=== PATIENT | male | born 1970 | race African-American/Black ===

== ENCOUNTER → 2016-08-30 | Outpatient (CLI) | payer OTHER ==
--- NOTE | 2016-09-01 16:46 | US ---
EXAM DATE: 08/30/16 PATIENT'S AGE: 46 Patient: ROSMERY VANESSA Facility: [place], [place] Site . Site : 1970 Study: US Extremity [id number]/28/2017 12:19:59 PM Ordering Physician: Tony Felix Final Report: INDICATION: swelling and pain in rt leg RIGHT LOWER EXTREMITY VENOUS DUPLEX ULTRASOUND TECHNIQUE: Duplex sonography using grayscale imaging as well as color and spectral Doppler interrogation was performed over the right lower extremity with attention to the deep venous system. FINDINGS: The right common femoral, femoral, deep femoral, popliteal, and posterior tibial veins show normal compressibility, color Doppler flow, and augmentation response. IMPRESSION: No evidence of deep venous thrombosis in the right lower extremity. PANCHO AMEZQUITA MD [employer] Dictated by: Kyrie Amezquita MD @ 08/30/2016 12:22:18 (Electronic Signature) Report Signed by Proxy. YAKOV
== END ==
LOC: MW.US 11:30
PROVIDERS: ATTEND Student in an Organized Health Care Education/Training Program
DX: M79.604 Pain in right leg (principal); R22.41 Localized swelling, mass and lump, right lower limb
CPT/HCPCS: 93971-26-RT; 93971-RT

== ENCOUNTER 2018-05-15 19:19 | Emergency (ER) | payer MEDICAID, MEDICARE ==
--- NOTE | 2018-05-15 19:36 | EDM.PDOC ---
ED HPI GENERAL MEDICAL PROBLEM - General Chief Complaint: Trauma Stated Complaint: FALL Time Seen by Provider: 05/15/18 19:26 - History of Present Illness INITIAL COMMENTS - FREE TEXT/NARRATIVE: HISTORY AND PHYSICAL: History of present illness: The patient is a 47-year-old male with a history of hypertension type 2 diabetes and chronic right leg weakness due to a back surgery and chronic back pain who normally uses a cane to get around due to this weakness and presents to the ED after he was getting out of the passenger side of the car and there was ice and he immediately put weight on it with his bad leg and slipped and fell onto his right side. This event occurred about 3 hours ago. He did not pass out or blacked out but he did strike his head and has no neck or upper back pain but complains of lower back pain and right hip pain as well as a slight headache. The patient takes aspirin daily and due to the mechanism and his aspirin use he was called as a trauma alert. Patient says that earlier today he was in his usual state of good health with no systemic complaints such as fevers chills chest pain shortness of breath or new neurologic changes. He had a normal day of eating and drinking. He follows at [facility] with a provider therefore his health care and medications. is at bedside and she was present for this incident. Patient denies lower leg pain or upper extremity complaints and has no chest or abdominal complaints. He says that the right side of his neck is sore and tight but he has no midline neck pain. He's had no nausea and vomiting since the event. The patient tells me that he has pain at the right hip with movement but he doesn't feel like his right lower extremity is weaker with movement or ambulation Review of systems: As per history of present illness and below otherwise all systems reviewed and negative. Past medical history: As per history of present illness and as reviewed below otherwise noncontributory. Surgical history: As per history of present illness and as reviewed below otherwise noncontributory. Social history: No reported history of drug or alcohol abuse. Family history: As per history of present illness and as reviewed below otherwise noncontributory. Physical exam: General: Well-developed well-nourished obese man who is nontoxic and ambulated into the ED with his cane. Vital signs are noted by me HEENT: Atraumatic and I cannot appreciate any scalp defects or deformities or soft tissue swelling, normocephalic, pupils reactive, negative for conjunctival pallor or scleral icterus, mucous membranes moist, throat clear, neck supple, nontender, trachea midline. There is no evidence of any soft tissue injuries defects or deformities of the facial bones and there are no midline step-offs tenderness defects of the cervical spine. There is slight tenderness in the right trapezius and right paracervical spinal area. TMs are dulled bilaterally Lungs: Clear to auscultation, breath sounds equal bilaterally, chest nontender. Heart: S1S2, regular rate and rhythm no overt murmurs Abdomen: Soft, nondistended, nontender. Negative for masses or hepatosplenomegaly. Negative for costovertebral tenderness. Pelvis: Stable and there is some mild tenderness to palpation of the right posterior pelvis near the SI joint but no bruising ecchymosis or soft tissue swelling is appreciated. Genitourinary: Deferred. Rectal: Deferred. Extremities: Atraumatic, negative for cords or calf pain. Neurovascular unremarkable. The patient has no bony defects deformities or decreased range of motion in any of the extremities other than the right lower leg where he has discomfort with flexion at the right hip. Neuro: Awake, alert, oriented. Cranial nerves II through XII unremarkable. Cerebellum unremarkable. Motor is at the patient's baseline on his right lower leg and all other motor is intact 5/5 and sensory unremarkable throughout. Exam nonfocal. Back: There are no midline step-offs tenderness or defects of the thoracic or lumbar spine but there is right paraspinal tenderness with palpation along the posterior pelvis area and lumbar paraspinals but there is no soft tissue injury appreciated. Diagnostics: CT scan of the head and lumbar spine, right hip with pelvis x-ray Therapeutics: Toradol Norflex As this case was called as a trauma alert we will involve the trauma surgeon as needed and indicated pending the testing results. 2037: CT scan results were discussed with Dr. Yang the neurosurgeon on-call at [facility] and he says that this is just follow-up, pain management and possible physical therapy and no further emergent intervention. Testing results with the patient and family at bedside and will give him a prescription for Norflex and diclofenac and have advised him to use that as well as his home meds of oxycodone. Impression: Fall with right hip right lumbar back and head contusion Definitive disposition and diagnosis as appropriate pending reevaluation and review of above. Right Head Pain Score (Numeric/FACES): 8 - Related Data Allergies Allergy/AdvReac Type Severity Reaction Status Date / Time No Known Allergies Allergy Verified 05/15/18 20:32 Home Meds: Home Meds metFORMIN [Glucophage] 1,000 mg PO BID 09/27/13 [History] Aspirin [[place] Aspirin EC] 81 mg PO DAILY 03/24/14 [History] amLODIPine [Norvasc] 10 mg PO BID #60 tablet 09/02/14 [Rx] Carvedilol 25 mg PO BID 06/29/15 [History] Omeprazole [Prilosec] 40 mg PO ASDIRECTED 06/29/15 [History] oxyCODONE 15 mg PO Q8H 05/15/18 [History] Past Medical History Cardiovascular History: Reports: CAD, Hypertension Neurological History: Reports: Headaches, Chronic Endocrine/Metabolic History: Reports: Diabetes, Type II Dermatologic History: Reports: Psoriasis - Infectious Disease History Infectious Disease History: Reports: Chicken Pox - Past Surgical History Cardiovascular Surgical History: Reports: Other (See Below) GI Surgical History: Reports: Hernia, Abdominal Male Surgical History: Reports: Other (See Below) Other Male Surgeries/Procedures: adrenalectomy? Neurological Surgical History: Reports: Laminectomy, Other (See Below) Review of Systems - Review of Systems Review Of Systems: ROS reveals no pertinent complaints other than HPI. ED EXAM, GENERAL - Physical Exam Exam: See Below (See dictation) Course - Vital Signs Last Recorded V/S: Last Vital Signs Temp 36.6 C 05/15/18 19:19 Pulse 102 H 05/15/18 19:19 Resp 24 H 05/15/18 19:19 BP 149/84 H 05/15/18 19:19 Pulse Ox 97 05/15/18 19:19 - Orders/Labs/Meds Orders: Active Orders 24 hr Category Date Time Status Patient Status [ADT] Stat ADT 05/15/18 20:21 Active Head wo Cont [CT] Stat Exams 05/15/18 19:27 Taken Hip Min 2V or 3V w Pelvis Rt [CR] Stat Exams 05/15/18 19:27 Taken Lumbar Spine wo Cont [CT] Stat Exams 05/15/18 19:27 Taken Ketorolac [Toradol] Med 05/15/18 20:41 Once 60 mg IM ONETIME ONE Orphenadrine [Norflex] Med 05/15/18 20:41 Once 60 mg IM ONETIME ONE Medication Orders Ketorolac Tromethamine (Toradol) 60 mg IM ONETIME ONE Stop: 05/15/18 20:42 Orphenadrine Citrate (Norflex) 60 mg IM ONETIME ONE Stop: 05/15/18 20:42 Meds: Medications Generic Name Dose Route Start Last Admin Trade Name Chuy PRN Reason Stop Dose Admin Ketorolac Tromethamine 60 mg 05/15/18 20:41 Toradol IM 05/15/18 20:42 ONETIME ONE Orphenadrine Citrate 60 mg 05/15/18 20:41 Norflex IM 05/15/18 20:42 ONETIME ONE Departure - Departure Time of Disposition: 20:43 Disposition: Home, Self-Care 01 Condition: Good Clinical Impression: Traumatic fracture of lumbar vertebra Fall Qualifiers: Encounter type: initial encounter Qualified Code(s): W19.XXXA - Unspecified fall, initial encounter Closed head injury Qualifiers: Encounter type: initial encounter Qualified Code(s): S09.90XA - Unspecified injury of head, initial encounter Back contusion Qualifiers: Encounter type: initial encounter Laterality: right Qualified Code(s): S20.221A - Contusion of right back wall of thorax, initial encounter Contusion of right hip Qualifiers: Encounter type: initial encounter Qualified Code(s): S70.01XA - Contusion of right hip, initial encounter - Discharge Information Referrals: Isidro Jimenez MD [Primary Care Provider] - Forms: ED Department Discharge Additional Instructions: The following information is given to patients seen in the emergency department who are being discharged to home. This information is to outline your options for follow-up care. We provide all patients seen in our emergency department with a follow-up referral. The need for follow-up, as well as the timing and circumstances, are variable depending upon the specifics of your emergency department visit. If you don't have a primary care physician on staff, we will provide you with a referral. We always advise you to contact your personal physician following an emergency department visit to inform them of the circumstance of the visit and for follow-up with them and/or the need for any referrals to a consulting specialist. The emergency department will also refer you to a specialist when appropriate. This referral assures that you have the opportunity for followup care with a specialist. All of these measure are taken in an effort to provide you with optimal care, which includes your followup. Under all circumstances we always encourage you to contact your private physician who remains a resource for coordinating your care. When calling for followup care, please make the office aware that this follow-up is from your recent emergency room visit. If for any reason you are refused follow-up, please contact the [facility] emergency department at and ask to speak to the emergency department charge nurse. [facility] Primary care- Internal Medicine and Family [address] [address] [place] [address] Expect aches and pains over the next few days to one week and use her home medication or medications as prescribed to you today. Please only take the muscle relaxer when you're at home. Please call and schedule a follow-up appointment with your provider in the clinic at [facility] or one of hours for reevaluation and further care. Use ice to all areas of soreness for the next 24 hours and then alternate ice and heat afterwards. Return to ER as needed and as discussed - My Orders Last 24 Hours: My Active Orders 05/15/18 19:27 Head wo Cont [CT] Stat Hip Min 2V or 3V w Pelvis Rt [CR] Stat Lumbar Spine wo Cont [CT] Stat 05/15/18 20:21 Patient Status [ADT] Stat 05/15/18 20:41 Ketorolac [Toradol] 60 mg IM ONETIME ONE Orphenadrine [Norflex] 60 mg IM ONETIME ONE - Assessment/Plan Last 24 Hours: My Active Orders 05/15/18 19:27 Head wo Cont [CT] Stat Hip Min 2V or 3V w Pelvis Rt [CR] Stat Lumbar Spine wo Cont [CT] Stat 05/15/18 20:21 Patient Status [ADT] Stat 05/15/18 20:41 Ketorolac [Toradol] 60 mg IM ONETIME ONE Orphenadrine [Norflex] 60 mg IM ONETIME ONE
[2018-05-15] MEDS ORDERED: Ketorolac 60 MG/2 ML SDV IM ONE (20:41)
[2018-05-15 21:16] VITALS: BP 134/89
--- NOTE | 2018-05-18 14:41 | CT ---
EXAM DATE: 05/15/18 PATIENT'S AGE: 47 Patient: ROSMERY VANESSA Facility: [place], [place] Site . Site : 1970 Study: CT Head [id number]/11/2019 8:08:46 PM Ordering Physician: Elisa Chaudhary Final Report: INDICATION: Fall TECHNIQUE: CT head without contrast. COMPARISON: None FINDINGS: CSF spaces: Within normal limits for age. Brain parenchyma: The londono-white differentiation is normal. No sign of mass, hemorrhage, or midline shift. Skull base and calvarium: There is opacification of the right maxillary sinus and retention cysts in the left maxillary sinus. The mastoid air cells demonstrate no acute or significant findings. The visualized orbits are grossly unremarkable. No skull fractures. IMPRESSION: No acute intracranial abnormality. Maxillary sinus disease. Please note that all CT scans at this facility use dose modulation, iterative reconstruction, and/or weight-based dosing when appropriate to reduce radiation dose to as low as reasonably achievable. Dictated by Yvonne Ball MD @ May 15 2018 8:19PM (Electronic Signature) Report Signed by Proxy. [facility]
--- NOTE | 2018-05-18 14:42 | CT ---
EXAM DATE: 05/15/18 PATIENT'S AGE: 47 Patient: ROSMERY VANESSA Facility: [place], [place] Site . Site : 1970 Study: CT Spine Lumbar [id number]/11/2019 8:09:46 PM Ordering Physician: Elisa Chaudhary Final Report: INDICATION: Fall, recent lumbar surgery TECHNIQUE: CT lumbar spine without contrast. COMPARISON: MR December 16, 2016 FINDINGS: Vertebral alignment: Alignment is normal. Vertebrae: There is a minimally displaced fracture through the right L4 inferior facet. There is a right L5 hemilaminectomy. Discs and facet joints: Mild degenerative disc changes, most notable at the L4- L5 level. Mild multilevel degenerative facet changes. Extraspinal findings: Prevertebral soft tissues and visualized retroperitoneum are unremarkable. IMPRESSION: Minimally displaced fracture through the right L4 inferior facet. This appears acute to subacute in age. Postoperative changes of a right L5 hemilaminectomy. Please note that all CT scans at this facility use dose modulation, iterative reconstruction, and/or weight-based dosing when appropriate to reduce radiation dose to as low as reasonably achievable. Dictated by Yvonne Ball MD @ May 15 2018 8:24PM (Electronic Signature) Report Signed by Proxy. [facility]US[facility]akay[facility]
--- NOTE | 2018-05-18 14:42 | CR ---
EXAM DATE: 05/15/18 PATIENT'S AGE: 47 Patient: ROSMERY VANESSA Facility: [place], [place] Site . Site : 1970 Study: XRay Hip Right w/pelvis [id number]/11/2019 8:16:50 PM Ordering Physician: Elisa Chaudhary Final Report: Indication: Fall Technique: Frontal view pelvis, frontal and frog-leg lateral views right hip Comparison: None Findings: Bones: Alignment is normal. No fractures or bone lesions. Joint spaces: Mild degenerative changes in both hip joints. Soft tissues: Unremarkable. Impression: No acute abnormality. Dictated by Yvonne Ball MD @ May 15 2018 8:22PM (Electronic Signature) Report Signed by Proxy. YAKOV
== END 2018-05-15 21:12 | disposition home or self-care (01) ==
LOC: MW.ED 19:19
DX: S32.009A Unspecified fracture of unspecified lumbar vertebra, initial encounter for closed fracture (principal); S00.93XA Contusion of unspecified part of head, initial encounter; S70.01XA Contusion of right hip, initial encounter; I10 Essential (primary) hypertension; E11.9 Type 2 diabetes mellitus without complications; Z79.84 Long term (current) use of oral hypoglycemic drugs; Z79.82 Long term (current) use of aspirin; W01.0XXA Fall on same level from slipping, tripping and stumbling without subsequent striking against object, initial encounter
CPT/HCPCS: 70450; 72131; 73502; 96372; 99284; J1885; J2360

== ENCOUNTER 2023-03-12 18:44 | Emergency (ER) | payer SELFPAY ==
[2023-03-12] MEDS ORDERED: Morphine 4 MG/ML Syringe IVPUSH STA (19:11)
[2023-03-12] MEDS ORDERED: Sodium Chloride 0.9% 1,000 ML IV ONE (19:11)
[2023-03-12] MEDS ORDERED: Ondansetron 4 MG/2 ML SDV IVPUSH ONE (19:11)
[2023-03-12 19:15] LABS: BASOPHILS ABSOLUTE AUTO 0.06 K/uL (0.00-0.20); BASOPHILS PERCENT AUTO 0.8 % (0.0-1.0); EOSINOPHILS ABSOLUTE AUTO 0.13 K/uL (0.00-0.45); EOSINOPHILS PERCENT AUTO 1.7 % (0.0-6.0); HEMATOCRIT 41.5 % (42.0-52.0); HEMOGLOBIN 12.4 g/dL (14.0-18.0); IMMATURE GRAN ABSOLUTE AUTO 0.04 K/uL (0.00-0.05); IMMATURE GRAN PERCENT AUTO 0.5 % (0.0-0.4); LYMPHOCYTES ABSOLUTE AUTO 1.79 K/uL (1.00-4.80); LYMPHOCYTES PERCENT AUTO 23.2 % (24.0-44.0); MEAN CORPUSCULAR HEMOGLOBIN 21.3 pg (28.0-32.0); MEAN CORPUSCULAR HGB CONC 29.9 g/dL (32.0-36.0); MEAN CORPUSCULAR VOLUME 71.3 fL (83.0-99.0); MONOCYTES ABSOLUTE AUTO 1.39 K/uL (0.00-0.80); NEUTROPHILS PERCENT AUTO 55.8 % (41.0-71.0); PLATELET COUNT,PLT 264 K/uL (150-400); RED BLOOD CELL COUNT 5.82 M/uL (4.52-5.90); WHITE BLOOD CELL COUNT,WBC 7.71 K/uL (3.9-11.3)
[2023-03-12 19:48] LABS: A/G RATIO 0.9 (0.9-1.6); ALBUMIN 3.7 g/dL (3.4-5.0); BILIRUBIN TOTAL 0.3 mg/dL (0.2-1.0); CALCIUM 9.3 mg/dL (8.5-10.1); CARBON DIOXIDE,CO2 28.5 mmol/L (21.0-32.0); EST CRCL DRUG DOSING (CG) 49.94 mL/min; POTASSIUM,K 4.2 mmol/L (3.5-5.1)
[2023-03-12 20:12] LABS: CORONAVIRUS COVID-19 NAA POSITIVE (NEGATIVE); INFLUENZA A NAA NEGATIVE (NEGATIVE); INFLUENZA B NAA NEGATIVE (NEGATIVE); RESPIRATORY SYNCYTIAL VIR NAA NEGATIVE (NEGATIVE)
[2023-03-12 20:19] VITALS: BP 138/87
[2023-03-12 22:37] VITALS: PULSE 80
== END 2023-03-12 22:03 | disposition home or self-care (01) ==
LOC: MW.ED 18:44
DX: U07.1 COVID-19 (principal); R07.89 Other chest pain; I10 Essential (primary) hypertension; K21.9 Gastro-esophageal reflux disease without esophagitis; E11.9 Type 2 diabetes mellitus without complications; E66.9 Obesity, unspecified; Z68.42 Body mass index [BMI] 45.0-49.9, adult; Z79.4 Long term (current) use of insulin; Z79.899 Other long term (current) drug therapy
CPT/HCPCS: 0241U; 36415; 71045; 80053; 82947; 84484; 85025; 85379; 96361; 96374; 96375; 99285; J2270; J2405; J7030; 93010; 99284

== ENCOUNTER 2023-07-25 21:48 | Emergency (ER) | payer MEDICARE ==
[2023-07-25 22:35] LABS: BASOPHILS ABSOLUTE AUTO 0.08 K/uL (0.00-0.20); BASOPHILS PERCENT AUTO 0.7 % (0.0-1.0); EOSINOPHILS ABSOLUTE AUTO 0.08 K/uL (0.00-0.45); EOSINOPHILS PERCENT AUTO 0.7 % (0.0-6.0); HEMATOCRIT 41.3 % (42.0-52.0); HEMOGLOBIN 12.7 g/dL (14.0-18.0); IMMATURE GRAN ABSOLUTE AUTO 0.05 K/uL (0.00-0.05); IMMATURE GRAN PERCENT AUTO 0.5 % (0.0-0.4); LYMPHOCYTES ABSOLUTE AUTO 2.31 K/uL (1.00-4.80); LYMPHOCYTES PERCENT AUTO 21.2 % (24.0-44.0); MEAN CORPUSCULAR HEMOGLOBIN 21.1 pg (28.0-32.0); MEAN CORPUSCULAR HGB CONC 30.8 g/dL (32.0-36.0); MEAN PLATELET VOLUME 8.9 fL (9.4-12.4); MONOCYTES ABSOLUTE AUTO 0.87 K/uL (0.00-0.80); NEUTROPHILS ABSOLUTE AUTO 7.53 K/uL (1.80-7.70); NEUTROPHILS PERCENT AUTO 68.9 % (41.0-71.0); PLATELET COUNT,PLT 313 K/uL (150-400); RED BLOOD CELL COUNT 6.01 M/uL (4.52-5.90); WHITE BLOOD CELL COUNT,WBC 10.92 K/uL (3.9-11.3)
[2023-07-25 22:59] LABS: A/G RATIO 0.8 (0.9-1.6); ALBUMIN 3.8 g/dL (3.4-5.0); BILIRUBIN TOTAL 0.4 mg/dL (0.2-1.0); CALCIUM 9.6 mg/dL (8.5-10.1); CARBON DIOXIDE,CO2 24.9 mmol/L (21.0-32.0); CREATININE 2.3 mg/dL (0.8-1.3); EST CRCL DRUG DOSING (CG) 44.05 mL/min; POTASSIUM,K 4.7 mmol/L (3.5-5.1); PROTEIN TOTAL,TP 8.7 g/dL (6.4-8.2)
[2023-07-25 23:05] LABS: MEAN CORPUSCULAR VOLUME 68.7 fL (83.0-99.0)
[2023-07-25 23:12] LABS: CORONAVIRUS COVID-19 NAA NEGATIVE (NEGATIVE); INFLUENZA A NAA NEGATIVE (NEGATIVE); INFLUENZA B NAA NEGATIVE (NEGATIVE); RESPIRATORY SYNCYTIAL VIR NAA NEGATIVE (NEGATIVE)
[2023-07-25] MEDS: Sodium Chloride 0.9% 1,000 ML IV STA (23:56)
[2023-07-25] MEDS: Sodium Chloride 0.9% 10 ML Syringe FLUSH PRN (23:58)
[2023-07-25] MEDS: Sodium Chloride 0.9% 2.5 ML Syringe FLUSH PRN (23:59)
[2023-07-26 01:21] VITALS: BP 128/73; PULSE 96
== END 2023-07-26 01:18 | disposition home or self-care (01) ==
LOC: MW.ED 21:48
DX: R53.83 Other fatigue (principal); E11.65 Type 2 diabetes mellitus with hyperglycemia; N17.9 Acute kidney failure, unspecified; E66.9 Obesity, unspecified; I10 Essential (primary) hypertension; K21.9 Gastro-esophageal reflux disease without esophagitis; E78.00 Pure hypercholesterolemia, unspecified; Z79.4 Long term (current) use of insulin; Z79.899 Other long term (current) drug therapy
CPT/HCPCS: 0241U; 36415; 71046; 80053; 82947; 84484; 85025; 93005; 96360; 99285; J3490; J7030; 93010; 99282

== ENCOUNTER 2023-11-30 16:03 | Emergency (ER) | payer MEDICARE ==
[2023-11-30] MEDS: Ketorolac 30 MG/ML SDV IVPUSH ONE (16:51)
[2023-11-30 17:00] LABS: BASOPHILS ABSOLUTE AUTO 0.05 K/uL (0.00-0.20); BASOPHILS PERCENT AUTO 0.5 % (0.0-1.0); EOSINOPHILS PERCENT AUTO 2.2 % (0.0-6.0); HEMATOCRIT 31.4 % (42.0-52.0); IMMATURE GRAN ABSOLUTE AUTO 0.11 K/uL (0.00-0.05); IMMATURE GRAN PERCENT AUTO 1.2 % (0.0-0.4); LYMPHOCYTES ABSOLUTE AUTO 1.88 K/uL (1.00-4.80); LYMPHOCYTES PERCENT AUTO 20.2 % (24.0-44.0); MEAN CORPUSCULAR HGB CONC 28.7 g/dL (32.0-36.0); MEAN CORPUSCULAR VOLUME 69.9 fL (83.0-99.0); MEAN PLATELET VOLUME 9.1 fL (9.4-12.4); MONOCYTES ABSOLUTE AUTO 0.88 K/uL (0.00-0.80); MONOCYTES PERCENT AUTO 9.5 % (0.0-8.0); NEUTROPHILS ABSOLUTE AUTO 6.18 K/uL (1.80-7.70); NEUTROPHILS PERCENT AUTO 66.4 % (41.0-71.0); NRBC ABSOLUTE 0.03 K/uL (0.00-0.02); NRBC PERCENT 0.3 /100WBC (0.0-0.2); PLATELET COUNT,PLT 265 K/uL (150-400); RED BLOOD CELL COUNT 4.49 M/uL (4.52-5.90)
[2023-11-30 17:21] LABS: ALBUMIN 3.5 g/dL (3.4-5.0); BILIRUBIN TOTAL 0.3 mg/dL (0.2-1.0); CALCIUM 8.6 mg/dL (8.5-10.1); CARBON DIOXIDE,CO2 26.2 mmol/L (21.0-32.0); CREATININE 2.3 mg/dL (0.8-1.3); EST CRCL DRUG DOSING (CG) 42.94 mL/min; POTASSIUM,K 4.6 mmol/L (3.5-5.1); PROTEIN TOTAL,TP 7.1 g/dL (6.4-8.2)
[2023-11-30] MEDS: Iopamidol 755 MG/ML 500 ML Multipack Bottle IVPUSH STA (19:05)
[2023-11-30 20:02] VITALS: BP 161/80; PULSE 93
== END 2023-11-30 20:00 | disposition home or self-care (01) ==
LOC: MW.ED 16:03
DX: R10.84 Generalized abdominal pain (principal); D50.0 Iron deficiency anemia secondary to blood loss (chronic); I10 Essential (primary) hypertension; K21.9 Gastro-esophageal reflux disease without esophagitis; E66.9 Obesity, unspecified; E11.9 Type 2 diabetes mellitus without complications; Z79.84 Long term (current) use of oral hypoglycemic drugs; Z79.899 Other long term (current) drug therapy; Z75.8 Other problems related to medical facilities and other health care; Z68.43 Body mass index [BMI] 50.0-59.9, adult
CPT/HCPCS: 36415; 74177; 80053; 85025; 96374; 99284; J1885; Q9967

== ENCOUNTER 2023-12-22 09:06 | Day surgery (SDC) | payer MEDICARE ==
[2023-12-22] MEDS: Lactated Ringers 1,000 ML IV SCH (09:48)
[2023-12-22] MEDS ORDERED: propofoL 50 ML ONE (10:42)
[2023-12-22] MEDS ORDERED: Lidocaine 2% 5 ML SDV ONE (10:42)
[2023-12-22] MEDS ORDERED: Propofol 200 MG/20 ML SDV ONE (11:12)
[2023-12-22] MEDS ORDERED: Lactated Ringers 1,000 ML IV SCH (11:30)
[2023-12-22 11:54] VITALS: PULSE 70
[2023-12-22 13:36] VITALS: BP 123/54
== END 2023-12-22 12:18 | disposition home or self-care (01) ==
LOC: MW.SDS 09:06
PROVIDERS: ATTEND Surgery
DX: K29.50 Unspecified chronic gastritis without bleeding (principal); K31.9 Disease of stomach and duodenum, unspecified; K62.5 Hemorrhage of anus and rectum; D64.9 Anemia, unspecified; K64.4 Residual hemorrhoidal skin tags; I13.0 Hypertensive heart and chronic kidney disease with heart failure and stage 1 through stage 4 chronic kidney disease, or unspecified chronic kidney disease; E11.22 Type 2 diabetes mellitus with diabetic chronic kidney disease; I50.9 Heart failure, unspecified; N18.30 Chronic kidney disease, stage 3 unspecified; G47.30 Sleep apnea, unspecified; I25.10 Atherosclerotic heart disease of native coronary artery without angina pectoris; K21.9 Gastro-esophageal reflux disease without esophagitis; E66.01 Morbid (severe) obesity due to excess calories; Z79.84 Long term (current) use of oral hypoglycemic drugs; Z68.42 Body mass index [BMI] 45.0-49.9, adult; Z79.899 Other long term (current) drug therapy
CPT/HCPCS: 43239; 45378; 88305; 88342; J2704; J7120; 00813; J3490

== ENCOUNTER 2024-03-19 12:24 | Emergency (ER) | payer SELFPAY ==
[2024-03-19 13:36] VITALS: BP 151/97; PULSE 106
[2024-03-19 14:52] LABS: APPEARANCE,URINE CLEAR; BILIRUBIN,URINE NEGATIVE (NEGATIVE); COLOR,URINE YELLOW; GLUCOSE,URINE >=1000 mg/dL (NEGATIVE); KETONES,URINE NEGATIVE (NEGATIVE); LEUKOCYTE ESTERASE,URINE NEGATIVE (NEGATIVE); NITRITE,URINE NEGATIVE (NEGATIVE); OCCULT BLOOD,URINE SMALL (NEGATIVE); PROTEIN,URINE >=300 mg/dL (NEGATIVE); UROBILINOGEN,URINE 0.2 EU/dL (<2.0)
[2024-03-19 15:04] LABS: BACTERIA,URINE RARE (NEGATIVE); EPITHELIAL CELLS,URINE RARE (NONE-FEW); MUCUS,URINE LIGHT (NONE-MOD); RBC,URINE 0-1 (0-2/HPF); WBC,URINE 0-1 (0-5/HPF)
[2024-03-19 16:21] LABS: C. TRACHOMATIS BY PCR NOT DETECTED; N. GONORRHOEAE BY PCR NOT DETECTED
== END 2024-03-19 17:28 | disposition home or self-care (01) ==
LOC: MW.ED 12:24
DX: R30.0 Dysuria (principal); I25.10 Atherosclerotic heart disease of native coronary artery without angina pectoris; I11.0 Hypertensive heart disease with heart failure; I50.9 Heart failure, unspecified; E78.00 Pure hypercholesterolemia, unspecified; K21.9 Gastro-esophageal reflux disease without esophagitis; E11.9 Type 2 diabetes mellitus without complications; E66.9 Obesity, unspecified; Z90.89 Acquired absence of other organs; Z79.4 Long term (current) use of insulin; Z79.84 Long term (current) use of oral hypoglycemic drugs; Z79.899 Other long term (current) drug therapy; Z75.8 Other problems related to medical facilities and other health care; Z68.42 Body mass index [BMI] 45.0-49.9, adult
CPT/HCPCS: 76870; 76870-26; 81001; 87428-QW; 87491; 87591; 87651-QW; 93976; 99284